=== PATIENT | male | born 1975 | race Caucasian/White ===

== ENCOUNTER 2018-10-05 09:58 | Observation (INO) | payer OTHER ==
--- NOTE | 2018-10-05 10:29 | EDPHY ---
H & P Stated Complaint: SOB, cough, h/a x 2 days concerned for altitude sickness Time Seen by Provider: 10/05/18 10:15 HPI/ROS: CHIEF COMPLAINT: Short of breath, blood-tinged sputum when coughing HISTORY OF PRESENT ILLNESS: This is a healthy 43-year-old male who lives in [place]. He and his family been in [place]. [place] [address] [place] day before yesterday. Yesterday morning he felt poorly. He ultimately contacted a physician that makes house calls but did not see this doctor. Instead he went to a facility where he was able to have pulse oximetry performed. His pulse ox was 57%. They had oxygen available and his pulse ox improved to the low 90s with supplemental oxygen. He used supplemental oxygen from a can intermittently and drove to [place]. During the drive he began to feel better. He was experiencing headache but this has markedly improved. He continues to feel short of breath. He had a similar, but less severe, episode years ago after climbing three fourteeners in a day. He has been in various [place] ski resorts since without negative effects. REVIEW OF SYSTEMS: A ten system review of systems was performed and is negative with the exception of the items mentioned in the HPI. Past medical history: Anxiety Past surgical history: Negative Family history: Father with bicuspid aortic valve and aortic aneurysm. Social history: He works in cloud software engineer. He is to his high school sweetheart. They have 2 children. No tobacco use. Social alcohol use. No illicits. General Appearance: Alert. Vital signs reviewed. Room air pulse ox 85%. Eyes: Pupils equal and round, no conjunctival injection, no discharge. Anicteric. ENT, Mouth: Mucous membranes are moist, no oropharyngeal erythema or edema. Neck: No lymphadenopathy, supple. Trachea midline. Respiratory: Lungs with bilateral rales. Cardiovascular: Regular rate and rhythm; no murmur, rub, or gallop. Gastrointestinal: Abdomen is soft and nontender, no masses or organomegaly, bowel sounds normal. Skin: Warm and dry, no rashes on exposed skin, normal color. Back: Nontender to palpation over the thoracolumbar spine. No CVAT. Extremities: No lower extremity edema, no calf tenderness or swelling. Neurological: Alert and oriented. Moving all four extremities easily and equally. AMANDA. EOMI. Tongue midline. Facial expressions symmetric. Facial sensation intact to light touch. Speech fluent and appropriate. Psychiatric: Normal affect. - Medical/Surgical History Hx Asthma: No Hx Chronic Respiratory Disease: No Hx Diabetes: No Hx Cardiac Disease: No Hx Renal Disease: No Hx Cirrhosis: No Hx Alcoholism: No Hx HIV/AIDS: No Hx Splenectomy or Spleen Trauma: No Other PMH: depression - Social History Smoking Status: Never smoked Constitutional: Initial Vital Signs Temperature (C) 36.5 C 10/05/18 10:02 Heart Rate 90 10/05/18 10:02 Respiratory Rate 16 10/05/18 10:02 Blood Pressure 138/86 H 10/05/18 10:02 O2 Sat (%) 85 L 10/05/18 10:02 O2 Delivery Mode Room Air O2 (L/minute) 3 Allergies/Adverse Reactions: No Known Allergies Allergy (Verified 10/05/18 11:17) Home Medications: Medication Instructions Recorded Sertraline HCl [Zoloft 50mg (*)] 50 mg PO DAILY 10/05/18 Medical Decision Making ED Course/Re-evaluation: Chest x-ray shows bilateral pulmonary edema, consistent with HAPE. That seems most likely diagnosis given his history. He has hypoxic respiratory failure with pulse ox of 85% at this altitude. He is being admitted for supportive treatment. I re-examined the patient after my first assessment, doing a full neurologic exam except for visual acuity. He has a normal neurologic exam and I do not suspect HACE. He is noted to be mildly hypertensive in the ED. He will follow up with his PCP in [place] concerning BP. Differential Diagnosis: Shortness of breath including but not limited to high altitude pulmonary edema, pulmonary infectious process, COPD, asthma, pulmonary embolus and congestive heart failure. - Data Points Medications Given: Discontinued Medications Ibuprofen (Motrin) 600 mg PO ONCE ONE Stop: 10/05/18 11:25 Last Admin: 10/05/18 11:40 Dose: 600 mg Sertraline HCl (Zoloft) 50 mg PO DAILY ARISTEO Stop: 04/04/19 08:59 Last Admin: 10/06/18 08:31 Dose: 50 mg Sildenafil Citrate (Viagra) 25 mg PO EDNOW ONE Stop: 10/05/18 11:00 Last Admin: 10/05/18 11:32 Dose: 25 mg Departure - Departure Disposition: [facility] Inpatient Acute Clinical Impression: High altitude pulmonary edema Qualifiers: Encounter type: initial encounter Qualified Code(s): T70.29XA - Other effects of high altitude, initial encounter Condition: Fair
[2018-10-05] MEDS ORDERED: SILDENAFIL CITRATE 50 MG TAB PO ONE (10:59)
[2018-10-05] MEDS ORDERED: IBUPROFEN 600 MG TAB PO ONE ×2 (11:24→11:36)
[2018-10-05] MEDS ORDERED: ACETAMINOPHEN 325 MG TAB PO PRN (12:17)
[2018-10-05] MEDS ORDERED: ONDANSETRON 4 MG/2 ML VIAL IVP PRN (12:17)
[2018-10-05] MEDS ORDERED: ONDANSETRON DISINTEGRATING 4 MG TAB PO PRN (12:17)
[2018-10-05] MEDS ORDERED: IBUPROFEN 200 MG TAB PO PRN (12:17)
--- NOTE | 2018-10-05 13:40 | GHP ---
[f rep st] HISTORY AND PHYSICAL DATE OF ADMISSION: 10/05/2018 HISTORY OF PRESENT ILLNESS: The patient is a pleasant 43-year-old gentleman with minimal past medica l history, who presents with concerns for high-altitude pulmonary edema. He traveled from [facility] where the elevation is essentially sea level to [place]. He had been up there skiin g all day yesterday, skiing the [place] [employer], which is as high as 13,000 feet. He felt winded with a cough, subsequently he went to the gym and worked out, and then he had a difficult overnight with o rthopnea and hemoptysis. He has not had infectious symptoms such as fever, chills, or sputum. He do es not have a previous cardiac history. He does have a history prior of hiking three 14er's in a day and feeling very poorly, with his brothe anthony. This was about 10 years ago, but has otherwise tolerated trips to [place] in the past. He has n ot had lower extremity edema. He does have a family history of bicuspid aortic valve, which he says has been evaluated in the past. REVIEW OF SYSTEMS: Complete 10-point review of systems conducted; negative except as noted in the HP I. PAST MEDICAL HISTORY: Possible pulmonary edema. ALLERGIES: No known drug allergies. HOME MEDICATIONS: Sertraline. SOCIAL HISTORY: Lives in [place], [place]. 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 He is a nonsmoker. Social alcohol. FAMILY HISTORY: His father had significant heart disease including bicuspid aortic valve. PHYSICAL EXAMINATION: VITAL SIGNS: Temp 36.5, blood pressure 136/86, pulse 90, breathing 16 times a minute, 85% on room air. GENERAL: In no acute distress. Sclerae anicteric. Oropharynx clear. Mu cous membranes moist. NECK: Supple without lymphadenopathy or JVD. LUNGS: Clear to auscultation b ilaterally. HEART: S1, S2. ABDOMEN: Soft, nontender, nondistended. LOWER EXTREMITIES: No edema. Calves are nontender. SKIN: Without rash. NEUROLOGIC: Nonfocal. DATA: There are no labs. Chest x-ray interpreted by me shows perihilar opacities consistent with pu lmonary edema. I discussed the case with Dr. Alina Madison. ASSESSMENT/PLAN: 43-year-old gentle with pulmonary edema. 1. Pulmonary edema. I think this is high-altitude pulmonary edema on the basis of the risk factors of cold air, significant exertion, and extreme high altitude above 13,000 feet. Supportive care is a ppropriate. He did have sats in the 60s apparently in [place]; has come down, is 85% here, with air space disease. He received Viagra here in the emergency department. Will not re-dose that unti l tomorrow, if at all. We will provide supplemental oxygen. 2. Question bicuspid aortic valve. The patient has no heart murmur. Will not further evaluate. 3. Acute hypoxemic respiratory failure. He has this on the basis of pulmonary edema. 4. Prophylaxis: Sequential compression devices. DISPOSITION: Observation. /[id number]/MODL
[2018-10-06 07:34] VITALS: BP 130/83
--- NOTE | 2018-10-06 08:43 | HOSPPROG ---
Hospitalist Progress Note Assessment/Plan: 43 yo M w HAPE resolved home today see dc summary Subjective: ambulated on RA w sats 89% and higher. no dyspnea Objective: Vital Signs Temp Pulse Resp BP Pulse Ox 36.5 C 71 18 130/83 H 99 10/06/18 07:33 10/06/18 07:33 10/06/18 07:33 10/06/18 07:33 10/06/18 08:00 Laboratory Results 10/06/18 04:32 10/05/18 10/06/18 10/07/18 05:59 05:59 05:59 Intake Total 2250 Balance 2250 - Physical Exam Constitutional: no apparent distress, appears nourished Eyes: PERRL, anicteric sclera Ears, Nose, Mouth, Throat: moist mucous membranes, hearing normal Cardiovascular: regular rate and rhythym, no murmur, rub, or gallop Respiratory: no respiratory distress, no rales or rhonchi Gastrointestinal: normoactive bowel sounds, soft, non-tender abdomen Genitourinary: No noguera in urethra Skin: warm, normal color Musculoskeletal: full muscle strength ICD10 Worksheet Patient Problems: Problems Problem Status Onset High altitude pulmonary edema Acute
[2018-10-06] MEDS ORDERED: SERTRALINE HCL 50 MG TAB PO SCH (09:00)
--- NOTE | 2018-10-06 09:57 | ASMTCMCOM ---
CM Note CM Note Notes: Met with Pt and chart reviewed for discharge. Alvaro is a 43 yr. old admitted with orthopnea & hemoptysis. Pt dx with High Altitude Pulm edema is here from [facility] [place]. Pt is flying back to [place] tomorrow with his family. CM available if needs arise. PLAN: Home Independently Date Signed: 10/06/2018 09:56 AM Electronically Signed By:Renae Austin
--- NOTE | 2018-10-06 09:59 | ASMTLACE ---
[facility] Length of stay for Answers: 1 day current admission Acuity / Level of Answers: No Care: Did the patient have an inpatient admission? # of Emergency department Answers: 1-2 visits in the last 6 months Social determinants Answers: Mental health diagnosis (anxiety, depression, pers onality disorders, etc.) Score: 5 Date Signed: 10/06/2018 09:58 AM Electronically Signed By:Renae Austin
--- NOTE | 2018-10-06 10:28 | GDS ---
[f rep st] DISCHARGE SUMMARY DISCHARGE DIAGNOSES: 1. Acute hypoxemic respiratory failure secondary to high-altitude pulmonary edema. 2. High-altitude pulmonary edema. Please see admission history and physical by Dr. Rachid Ruiz. The patient presented with hemoptysis, dyspnea. Chest x-ray showed bilateral perihilar infiltrates. He is from [place], [place], snowboarding in [place] at 13,000 feet, developed orthopnea, hemoptysis presented. Diagnosis consistent with high-altitude pulmonary edema in this previously healthy gentleman. He received a dose of sildenafil. He had normal labs. No heart murmur. On the morning of discharge , the patient was ambulating on room air with no symptoms. He is discharged home. He is flying home to [place] tomorrow. /[id number]/MODL
== END 2018-10-06 10:38 | disposition home or self-care (01) ==
LOC: F1N 11:54
PROVIDERS: ADMIT Internal Medicine; ATTEND Internal Medicine
DX: T70.29XA Other effects of high altitude, initial encounter (principal); J81.0 Acute pulmonary edema; J96.01 Acute respiratory failure with hypoxia
CPT/HCPCS: 71046; G0378